=== PATIENT | male | born 1995 | race Caucasian/White ===

== ENCOUNTER 2016-08-12 22:47 | Emergency (ER) | payer OTHER ==
[~2016-08-12] VITALS: Ht 182.9 cm; Wt 97.5 kg
[2016-08-12 22:55] VITALS: BP 131/75; PULSE 75; RESP 19; TEMP 97.2; O2SAT 99
--- NOTE | 2016-08-12 23:25 | NUR ---
Placed in hallway for exam. Side rails up.
--- NOTE | 2016-08-12 23:30 | NUR ---
Pt brought to ED by family members with c/o L ankle pain 5/10 , s/p trip and fall during soccer practice. Pedal pulse 2+ bilaterally, skin intact, no deformity noted. Will continue to monitor
--- NOTE | 2016-08-12 23:45 | NUR ---
MD fajardo at bedside examining pt
--- NOTE | 2016-08-13 00:35 | NUR ---
Patient given written and verbal discharge instructions and verbalizes understanding. ER MD Naqvi discussed with patient the results and treatment provided. Patient in stable condition. ID arm band removed. Rx of motrin given. Patient educated on pain management and to follow up with PMD. Pain Scale 0/10. Opportunity for questions provided and answered.
== END 2016-08-13 00:35 | disposition home or self-care (01) ==
LOC: SED 22:47
DX: S93.402A Sprain of unspecified ligament of left ankle, initial encounter (principal); R03.0 Elevated blood-pressure reading, without diagnosis of hypertension; Z88.1 Allergy status to other antibiotic agents; W19.XXXA Unspecified fall, initial encounter; Y93.64 Activity, baseball; Y92.89 Other specified places as the place of occurrence of the external cause; Y99.8 Other external cause status
CPT/HCPCS: 99284